=== PATIENT | male | born 1985 | race Two or more races ===

== ENCOUNTER 2022-03-07 13:18 | Emergency (ER) | payer MEDICAID ==
[~2022-03-07] VITALS: Ht 172.7 cm; Wt 91.0 kg
[2022-03-07] MEDS ORDERED: ONDANSETRON HCL 4MG/2ML INJ IV ONE (13:45)
[2022-03-07] MEDS ORDERED: SODIUM CHLORIDE 0.9% 500 ML IV ONE (13:45)
[2022-03-07 14:27] LABS: HEMOGLOBIN. 14.6 g/dL (14.0-18.0); MEAN CORPUSCULAR VOLUME 90.6 fL (80.0-94.0); MEAN PLATELET VOLUME 9.1 fl (7.4-10.4); PLATELET 250 x1000/uL (130-400); RED BLOOD CELL COUNT 4.86 mill/uL (4.7-6.1); RED CELL DISTRIBUTION WIDTH 13.9 % (11.6-14.6)
[2022-03-07 14:34] LABS: CHLORIDE 98 mEq/L (98-107)
[2022-03-07 14:42] LABS: ETHANOL BLOOD < 10 mg/dL
[2022-03-07 14:53] LABS: PLATELET ESTIMATE NORMAL
[2022-03-07] MEDS ORDERED: METOCLOPRAMIDE HCL 10MG/2ML VIAL IV ONE (16:30)
[2022-03-07] MEDS ORDERED: ACETAMINOPHEN 325MG TABLET PO ONE (16:30)
[2022-03-07] MEDS: RISPERIDONE 1MG TABLET PO SCH (19:15)
[2022-03-08] MEDS: RISPERIDONE 1MG TABLET PO SCH (09:00)
[2022-03-08 10:49] VITALS: BP 135/90
== END 2022-03-08 10:50 | disposition home or self-care (01) ==
LOC: ER 13:18
DX: T43.651A Poisoning by methamphetamines accidental (unintentional), initial encounter (principal); T40.5X1A Poisoning by cocaine, accidental (unintentional), initial encounter; T40.1X1A Poisoning by heroin, accidental (unintentional), initial encounter; R11.2 Nausea with vomiting, unspecified; F32.A Depression, unspecified; F15.188 Other stimulant abuse with other stimulant-induced disorder; F14.188 Cocaine abuse with other cocaine-induced disorder; F11.188 Opioid abuse with other opioid-induced disorder; Z20.822 Contact with and (suspected) exposure to COVID-19; R73.9 Hyperglycemia, unspecified; F20.9 Schizophrenia, unspecified; Z63.0 Problems in relationship with spouse or partner; Z59.00 Homelessness unspecified; Y92.018 Other place in single-family (private) house as the place of occurrence of the external cause
CPT/HCPCS: 36415; 80053; 80307; 80320; 80329; 82962; 85025; 93005; 96361; 96374; 96375; 99285; C9803; J2405; J2765; J7040; U0003; U0005; G0480

== ENCOUNTER 2023-09-04 18:33 | Emergency (ER) | payer OTHER, MEDICAID ==
[~2023-09-04] VITALS: Ht 170.2 cm; Wt 82.0 kg
[2023-09-04 19:19] LABS: BASOPHILS % 0.7 % (0.0-2.0); EOSINOPHILS % 1.4 % (0.0-5.0); HEMATOCRIT. 41.2 % (42.0-52.0); HEMOGLOBIN. 14.4 g/dL (14.0-18.0); LYMPHOCYTES % 19.2 % (20.0-50.0); MEAN CORPUSCULAR HEMOGLOBIN 31.1 pg (28.0-32.0); MEAN CORPUSCULAR HGB CONC 34.9 g/dL (31.0-37.0); MEAN CORPUSCULAR VOLUME 89.2 fL (80.0-94.0); MEAN PLATELET VOLUME 8.6 fl (7.4-10.4); NEUTROPHILS % 69.7 % (40.0-76.0); PLATELET 272 x1000/uL (130-400); RED BLOOD CELL COUNT 4.62 mill/uL (4.7-6.1); RED CELL DISTRIBUTION WIDTH 13.9 % (11.6-14.6); WHITE BLOOD COUNT 8.9 x1000/uL (4.5-11.0)
[2023-09-04 19:20] LABS: CHLORIDE 109 mEq/L (98-107); POTASSIUM 3.6 mEq/L (3.5-5.1); SODIUM 139 mEq/L (136-145)
[2023-09-04 19:21] LABS: CALCIUM 8.9 mg/dL (8.7-10.4); CARBON DIOXIDE 23 mEq/L (21-32)
[2023-09-04 19:26] LABS: CREATININE 0.9 mg/dL (0.6-1.3); GLUCOSE 117 mg/dL (70-105); UREA NITROGEN BLOOD 7 mg/dL (9-23)
[2023-09-04 19:27] LABS: ETHANOL BLOOD < 10 mg/dL (<10)
[2023-09-04 19:28] LABS: ACETAMINOPHEN < 2 ug/mL (10-30); ALANINE AMINOTRANSFERASE 34 IU/L (10-49); ALBUMIN 4.4 g/dL (3.2-4.8); ASPARTATE AMINOTRANSFERASE 36 IU/L (<34); BILIRUBIN TOTAL 0.3 mg/dL (0.1-1.0)
[2023-09-04] MEDS: ACTIVATED CHARCOAL 50 G/240 ML TUBE NG ONE (19:55)
[2023-09-04 20:29] VITALS: O2SAT 97
[2023-09-04] MEDS: MIDAZOLAM HCL 2 MG/2 ML VIAL IV ONE (20:29)
[2023-09-04] MEDS: SODIUM CHLORIDE 0.9% 1,000 ML IV ONE (20:31)
[2023-09-04 20:52] LABS: *AMPHETAMINES SCREEN URINE NEGATIVE (NEGATIVE); *BARBITURATES SCREEN URINE NEGATIVE (NEGATIVE); *BENZODIAZEPINES SCREEN URINE NEGATIVE (NEGATIVE); *COCAINE SCREEN URINE NEGATIVE (NEGATIVE); CANNABINOID URINE SCREEN NEGATIVE (NEGATIVE); ECSTASY MDMA SCREEN URINE NEGATIVE (NEGATIVE); METHADONE URINE SCREEN Neg (NEGATIVE); OPIATES URINE SCREEN NEGATIVE (NEGATIVE); PHENCYCLIDINE URINE SCREEN NEGATIVE (NEGATIVE)
[2023-09-05] MEDS: LORAZEPAM 2MG/ML INJ IM ONE ×2 (00:14→11:30)
[2023-09-05] MEDS: OLANZAPINE 10 MG/VIAL IM ONE (11:30)
[2023-09-05] MEDS ORDERED: DIPHENHYDRAMINE 50MG CAPSULE PO ONE (20:45)
[2023-09-05] MEDS: LORAZEPAM 1MG TABLET PO ONE (20:51)
[2023-09-05] MEDS: DIPHENHYDRAMINE 25MG CAPSULE PO NR (21:07)
[2023-09-05] MEDS: MELATONIN 3MG TABLET PO SCH (21:12)
[2023-09-06] MEDS: LORAZEPAM 1MG TABLET PO ONE (11:14)
[2023-09-06 17:42] VITALS: BP 141/78; PULSE 77; RESP 16; TEMP 97.9
[2023-09-06] MEDS: MELATONIN 3MG TABLET PO NR (21:59)
[2023-09-06] MEDS: RISPERIDONE 1MG TABLET PO SCH (21:59)
== END 2023-09-06 22:10 | disposition still patient (30) ==
LOC: ER 18:33
DX: R45.851 Suicidal ideations (principal); T43.591A Poisoning by other antipsychotics and neuroleptics, accidental (unintentional), initial encounter; F31.9 Bipolar disorder, unspecified; F20.9 Schizophrenia, unspecified; F14.90 Cocaine use, unspecified, uncomplicated; F15.90 Other stimulant use, unspecified, uncomplicated; Y92.89 Other specified places as the place of occurrence of the external cause
CPT/HCPCS: 80053; 80305; 80307; 80329; 80320; 85025; 36415; 93005 ×2; 96361; 96372; 96374; 99285; 87426; J2250; J7030; Q0163; J3490; J2060; G0480